=== PATIENT | male | born 2005 | race Caucasian/White ===

== ENCOUNTER 2025-07-10 22:02 | Emergency (ER) | payer OTHER ==
[~2025-07-10] VITALS: Ht 182.9 cm; Wt 79.4 kg
[2025-07-10] MEDS ORDERED: IBUPROFEN 400 MG TABLET ONE (23:41)
[2025-07-11] MEDS: IBUPROFEN 400 MG TABLET PO ONE (00:02)
[2025-07-11] MEDS ORDERED: HYDR-3972 PO (01:02)
[2025-07-11 02:12] VITALS: BP 132/63; TEMP 98; O2SAT 97
== END 2025-07-11 02:12 | disposition home or self-care (01) ==
LOC: ER 22:33
DX: S22.059A Unspecified fracture of T5-T6 vertebra, initial encounter for closed fracture (principal); S09.90XA Unspecified injury of head, initial encounter; W51.XXXA Accidental striking against or bumped into by another person, initial encounter; Y93.61 Activity, american tackle football; Y92.89 Other specified places as the place of occurrence of the external cause; Y99.8 Other external cause status
CPT/HCPCS: 99284; 72125; 70450; 72128; 72131; L0172